=== PATIENT | male | born 1940 | race Caucasian/White ===

== ENCOUNTER 2018-08-13 10:43 | Day surgery (SDC) | payer MEDICARE, OTHER ==
[~2018-08-13] VITALS: Ht 182.9 cm; Wt 92.5 kg
[~2018-08-13 10:43] MED LIST: AMLO10 PO; GABA300 PO; GLIP5ER PO; LO-DOSE ASPIRIN81 MG PO; METF500 PO; TRAM50 PO; ZESTRIL40 MG PO
== END 2018-08-13 15:30 | disposition home or self-care (01) ==
LOC: ORSCSDS 10:43
PROVIDERS: Podiatrist Foot & Ankle Surgery
PROC: 0SGK07Z Fusion of Right Tarsometatarsal Joint with Autologous Tissue Substitute, Open Approach (ICD-10-PCS; principal; 2018-08-13 12:30)
PROC: 0SGH04Z Fusion of Right Tarsal Joint with Internal Fixation Device, Open Approach (ICD-10-PCS; principal; 2018-08-13 12:30)
PROC: 0SGK04Z Fusion of Right Tarsometatarsal Joint with Internal Fixation Device, Open Approach (ICD-10-PCS; principal; 2018-08-13 12:30)
DX: M21.171 Varus deformity, not elsewhere classified, right ankle (principal); M19.071 Primary osteoarthritis, right ankle and foot; I10 Essential (primary) hypertension; E11.40 Type 2 diabetes mellitus with diabetic neuropathy, unspecified; Z87.891 Personal history of nicotine dependence; Z79.899 Other long term (current) drug therapy; Z79.82 Long term (current) use of aspirin
CPT/HCPCS: 82947; C1713; C1769; J2370; J2405; J2704; J3010

== ENCOUNTER 2018-10-29 06:14 | Day surgery (SDC) | payer MEDICARE, OTHER | END 2018-10-29 09:04 | disposition home or self-care (01) | LOC: ORSCSDS 06:14 | PROVIDERS: Podiatrist Foot & Ankle Surgery | PROC: 0YP90YZ Removal of Other Device from Right Lower Extremity, Open Approach (ICD-10-PCS; principal; 2018-10-29 07:30) | DX: Z96.9 Presence of functional implant, unspecified (principal); I10 Essential (primary) hypertension; E11.9 Type 2 diabetes mellitus without complications; Z79.82 Long term (current) use of aspirin; Z79.84 Long term (current) use of oral hypoglycemic drugs; Z79.899 Other long term (current) drug therapy | CPT/HCPCS: 82947; J2250; J2704; J3010; J7120 ==

== ENCOUNTER 2021-02-01 10:10 | Inpatient (IN) | payer MEDICARE, BC ==
[~2021-02-01] VITALS: Ht 185.4 cm; Wt 91.5 kg
[2021-02-01 11:12] LABS: BASOPHILS ABSOLUTE AUTO 0.08 K/mm3 (0.00-0.23); BASOPHILS PERCENT AUTO 0 % (0-2); EOSINOPHILS ABSOLUTE AUTO 0.05 K/mm3 (0.00-0.68); EOSINOPHILS PERCENT AUTO 0 % (0-6); Hemoglobin 13.2 g/dL (13.5-17.5); IMMATURE GRAN ABSOLUTE AUTO 0.17 K/mm3 (0.00-0.10); IMMATURE GRAN PERCENT AUTO 1 % (0-1); LYMPHOCYTES ABSOLUTE AUTO 1.08 K/mm3 (0.84-5.20); LYMPHOCYTES PERCENT AUTO 5 % (21-46); MONOCYTES ABSOLUTE AUTO 2.13 K/mm3 (0.16-1.47); MONOCYTES PERCENT AUTO 10 % (4-13); Mean Corpuscular HGB 31.6 pg (26.0-34.0); Mean Corpuscular Volume 96 fL (80-100); Mean Platelet Volume 11.3 fL (9.1-12.4); NEUTROPHILS ABSOLUTE AUTO 16.93 K/mm3 (1.96-9.15); NEUTROPHILS PERCENT AUTO 83 % (41-73); Platelet Count 297 K/mm3 (150-400); RDW Coefficient Variation 14.1 % (11.7-14.2); RDW Standard Deviation 49.1 fL (35.1-46.3); Red Blood Cell Count 4.18 M/mm3 (4.30-5.90); White Blood Cell Count 20.44 K/mm3 (4.00-11.30)
[2021-02-01 11:33] LABS: Albumin, Blood 2.6 g/dL (3.4-5.0); Albumin/Globulin Ratio 0.6 (0.8-1.8); Bilirubin, Total 0.6 mg/dL (0.1-1.0); Bun/Creatinine Ratio 21.8 (12.0-20.0); Calcium, Blood 9.2 mg/dL (8.5-10.1); Creatinine, Blood 1.56 mg/dL (0.60-1.20); Globulin, Blood 4.4 g/dL (2.2-4.0); Potassium, Blood 4.7 mmol/L (3.5-5.5)
[2021-02-01] MEDS ORDERED: GLIP5 PO (12:55)
[2021-02-01] MEDS ORDERED: PRAVASTATIN SOD10 MG PO (12:56)
--- NOTE | 2021-02-01 18:42 | NUR ---
PATIENT IS ALERT AND ORIENTED AND COOPERATIVE WITH CARE. PICTURES OF HIS WOUNDS WERE TAKEN AND PLACED ON HIS CHART TODAY. C/O PAIN AND MEDICATED PER EMAR. USES THE URINAL STANDING AT THE BEDSIDE WITH SBA. USES A CANE. HIS LACTIC ACID INCREASED TO 2.9 cH, DR. GO WAS CALLED AND NOTIFIED BY VOICEMAIL. PATIENT LIVES AT HOME WITH HIS . WILL CONTINUE TO MONITOR
[2021-02-02 05:12] LABS: BASOPHILS ABSOLUTE AUTO 0.05 K/mm3 (0.00-0.23); BASOPHILS PERCENT AUTO 0 % (0-2); EOSINOPHILS ABSOLUTE AUTO 0.11 K/mm3 (0.00-0.68); EOSINOPHILS PERCENT AUTO 1 % (0-6); Hematocrit 37.7 % (37.0-53.0); Hemoglobin 12.6 g/dL (13.5-17.5); IMMATURE GRAN ABSOLUTE AUTO 0.23 K/mm3 (0.00-0.10); IMMATURE GRAN PERCENT AUTO 1 % (0-1); LYMPHOCYTES ABSOLUTE AUTO 0.97 K/mm3 (0.84-5.20); LYMPHOCYTES PERCENT AUTO 5 % (21-46); MONOCYTES ABSOLUTE AUTO 1.17 K/mm3 (0.16-1.47); MONOCYTES PERCENT AUTO 6 % (4-13); Mean Corpuscular HGB 31.3 pg (26.0-34.0); Mean Corpuscular HGB Conc 33.4 g/dL (31.5-36.5); Mean Corpuscular Volume 94 fL (80-100); Mean Platelet Volume 11.3 fL (9.1-12.4); NEUTROPHILS ABSOLUTE AUTO 17.91 K/mm3 (1.96-9.15); NEUTROPHILS PERCENT AUTO 88 % (41-73); Platelet Count 288 K/mm3 (150-400); RDW Standard Deviation 48.4 fL (35.1-46.3); Red Blood Cell Count 4.02 M/mm3 (4.30-5.90); White Blood Cell Count 20.44 K/mm3 (4.00-11.30)
[2021-02-02 05:38] LABS: Alanine Aminotransfer (ALT/SGP 14 U/L (12-78); Albumin, Blood 2.3 g/dL (3.4-5.0); Albumin/Globulin Ratio 0.5 (0.8-1.8); Alk Phos 77 U/L (50-136); Anion Gap 7 mmol/L (6-16); Aspartate Aminotrans (AST/SGOT 37 U/L (12-37); Bilirubin, Total 0.6 mg/dL (0.1-1.0); Blood Urea Nitrogen 34 mg/dL (8-24); Bun/Creatinine Ratio 30.1 (12.0-20.0); CO2, Blood 22 mmol/L (21-32); Calcium, Blood 9.1 mg/dL (8.5-10.1); Chloride, Blood 102 mmol/L (98-108); Creatinine, Blood 1.13 mg/dL (0.60-1.20); Globulin, Blood 4.2 g/dL (2.2-4.0); Glomerular Filtration Rate >60 (60-); Glucose, Blood 180 mg/dL (70-99); Potassium, Blood 4.5 mmol/L (3.5-5.5); Sodium, Blood 131 mmol/L (136-145); Total Protein, Blood 6.5 g/dL (6.4-8.2)
--- NOTE | 2021-02-02 06:19 | NUR ---
SHIFT SUMMARY PT HAD C/O NAUSEA AND DRY HEAVING, TREATED WITH PRN ZOFRAN. PT ABLE TO SLEEP A FEW HOURS. HE HAD SOME CONFUSION AT NIGHT, NO HALLUCINATIONS NOTED. CONFUSION RESULTED IN PT BECOMING TANGLED WITH THE BLANKETS, OR SITTING ON THE EDGE OF THE BED UNABLE TO STAND WHEN HE WANTED TO USE THE URINAL WITH STAND BY ASSISTANCE. HE IS A&O X4 TO PLACE/EVENTS/PERSON/TIME, BUT SEEMS CONFUSED OR DIZZY WHEN HE TRIES TO STAND. BED IN LOWEST POSITION, CALL LIGHT WITHIN REACH.
--- NOTE | 2021-02-02 18:09 | NUR ---
SHIFT SUMMARY PT RESTING QUIETLY AT START OF SHIFT. WOKE EASILY FOR CARE. IVF'S AND IV ABX INFUSING PER EMAR. PT CALLED FOR ASSIST TO [facility] FOR BM. 1P SBA USING FWW. PER REPORT, PT ADMITTED FOR SEVERE SEPSIS R/T L GLUTEAL BOIL. L BUTTOCK RED, SWOLLEN AND FIRM. PT REPORTS IT PAINFUL. DR AGUILLON AND DR MARTÍNEZ IN TO SEE PT TODAY. SX CONSULT ORDERED; CALLED TO DR CONNELLY. [place] TO [place] NPO [place]. COVID SCREENING TEST SENT PER ORDERS. PT'S IN TO VISIT THIS AFTERNOON. ORDERS EXPLAINED TO PT AND ; VERBALIZED UNDERSTANDING. PT UP TO BTH[facility] AGAIN THIS AFTERNOON FOR EX LRG BM. SBA USING FWW, ASSISTING WITH IV PUMP. PT RESTING QUIETLY AT THIS TIME. DENIED FURTHER NEEDS. CALL LT IN REACH.
[2021-02-02 18:23] LABS: SARS-Cov-2 (COVID-19) PCR, MMC NEGATIVE (NEGATIVE)
--- NOTE | 2021-02-03 04:52 | NUR ---
SHIFT SUMMARY NO ACUTE CHANGES. PT DID EXHIBIT SOME FIXATION AND POSSIBLE CONFUSION DURING THE NIGHT. HE KEPT ASKING "WHEN ARE THEY COMING TO TAKE ME?" FOR TOMORROW'S SURGICAL CONSULT/PROCEDURE FOR HIS LEFT GLUTE WOUND. C/O ABD PAIN AND NAUSEA, RECEIVED PRN IV MEDICATION FOR NAUSEA. NPO AFTER MIDNIGHT FOR SURGICAL CONSULT. BED ALARM ON. PT WILL CALL FOR STAND BY ASSISTANCE WITH BSC OR URINAL. VSS. NO ACUTE CHANGES.
[2021-02-03 05:28] LABS: Hematocrit 36.9 % (37.0-53.0); Hemoglobin 12.3 g/dL (13.5-17.5); Mean Corpuscular HGB 31.6 pg (26.0-34.0); Mean Corpuscular HGB Conc 33.3 g/dL (31.5-36.5); Mean Corpuscular Volume 95 fL (80-100); Mean Platelet Volume 11.6 fL (9.1-12.4); Platelet Count 308 K/mm3 (150-400); RDW Coefficient Variation 14.3 % (11.7-14.2); RDW Standard Deviation 49.7 fL (35.1-46.3); Red Blood Cell Count 3.89 M/mm3 (4.30-5.90); White Blood Cell Count 14.47 K/mm3 (4.00-11.30)
[2021-02-03 06:39] LABS: Alanine Aminotransfer (ALT/SGP 17 U/L (12-78); Albumin/Globulin Ratio 0.5 (0.8-1.8); Alk Phos 72 U/L (50-136); Anion Gap 4 mmol/L (6-16); Aspartate Aminotrans (AST/SGOT 38 U/L (12-37); Bilirubin, Total 0.4 mg/dL (0.1-1.0); Blood Urea Nitrogen 23 mg/dL (8-24); Bun/Creatinine Ratio 25.2 (12.0-20.0); CO2, Blood 25 mmol/L (21-32); Calcium, Blood 8.9 mg/dL (8.5-10.1); Chloride, Blood 107 mmol/L (98-108); Creatinine, Blood 0.91 mg/dL (0.60-1.20); Glomerular Filtration Rate >60 (60-); Glucose, Blood 117 mg/dL (70-99); Potassium, Blood 4.4 mmol/L (3.5-5.5); Sodium, Blood 136 mmol/L (136-145)
[2021-02-03 12:47] LABS: Vancomycin, Trough 5.6 ug/mL (5.0-10.0)
--- NOTE | 2021-02-03 14:43 | NUR ---
SHIFT SUMMARY PT AWAKE AT START OF SHIFT. NPO SINCE [place] FOR PROCEDURE TO BE DONE THIS AFTERNOON. PT HAS BEEN UP TO BTHRM SEVERAL TIMES WITH 1P SBA USING FWW. IVF'S AND IV ABX INFUSED PER EMAR. PT HAS BEEN PLEASANT AND CO-OP WITH CARE, JUST WAITING TO GO FOR SX. DR MARTÍNEZ IN EARLY THIS AM TO SEE PT AND DISCUSS PLAN OF CARE. DR CONNELLY HERE A LITTLE LATER TO DISCUSS PROCEDURE AND OBTAIN SIGNED CONSENT. CURRENTLY AT BS TO VISIT. PT C/O NAUSEA THIS AFTERNOON WHEN OTHER LUNCH TRAYS DELIVERED IN [place]. ZOFRAN GIVEN PER EMAR. DENIED FURTHER NEEDS. CALL LT IN REACH.
--- NOTE | 2021-02-03 19:35 | NUR ---
1750 PT RETURNED FROM I&D OF L BUTTOCK; TOLERATED WELL. POST OP REPORT GIVEN BY BUDDY PERRY. VSS; SEE CHART. PT AWAKE, SITTING UP IN BED. ABLE TO EAT DINNER. IV ABX INFUSING; FLAGYL LATE D/T PT BEING GONE. ROCEPHIN TO BE GIVEN AT THIS TIME. PT RESTING QUIETLY. DENIED FURTHER NEEDS. CALL LT IN REACH.
--- NOTE | 2021-02-04 04:53 | NUR ---
SHIFT SUMMARY PT INITIALLY HAD SOME DIFFICULTY URINATING AFTER RETURNING FROM I&D PROCEDURE, BUT WAS ABLE TO VOID 300MLS. PT HAD TWO FORMED BOWEL MOVEMENTS. RN RE-DRESSED GAUZE COVERING ALEXANDR DRAIN ON THE LEFT GLUTE ABSCESS FROM THE I&D. SMALL AMOUNT OF SANGUINOUS DRAINAGE. PT C/O PAIN TO THE BILAT LEGS, WHICH WAS TREATED WITH PRN PAIN MEDICATION. VSS. PT ON ROOM AIR.
[2021-02-04 05:07] LABS: BASOPHILS ABSOLUTE AUTO 0.02 K/mm3 (0.00-0.23); BASOPHILS PERCENT AUTO 0 % (0-2); EOSINOPHILS PERCENT AUTO 0 % (0-6); Hematocrit 37.4 % (37.0-53.0); Hemoglobin 12.5 g/dL (13.5-17.5); IMMATURE GRAN ABSOLUTE AUTO 0.26 K/mm3 (0.00-0.10); IMMATURE GRAN PERCENT AUTO 2 % (0-1); LYMPHOCYTES ABSOLUTE AUTO 0.63 K/mm3 (0.84-5.20); LYMPHOCYTES PERCENT AUTO 4 % (21-46); MONOCYTES ABSOLUTE AUTO 1.03 K/mm3 (0.16-1.47); MONOCYTES PERCENT AUTO 7 % (4-13); Mean Corpuscular HGB 31.1 pg (26.0-34.0); Mean Corpuscular HGB Conc 33.4 g/dL (31.5-36.5); Mean Corpuscular Volume 93 fL (80-100); Mean Platelet Volume 11.8 fL (9.1-12.4); NEUTROPHILS ABSOLUTE AUTO 13.98 K/mm3 (1.96-9.15); NEUTROPHILS PERCENT AUTO 88 % (41-73); Platelet Count 342 K/mm3 (150-400); RDW Coefficient Variation 14.2 % (11.7-14.2); RDW Standard Deviation 49.6 fL (35.1-46.3); Red Blood Cell Count 4.02 M/mm3 (4.30-5.90); White Blood Cell Count 15.92 K/mm3 (4.00-11.30)
[2021-02-04 05:47] LABS: Alanine Aminotransfer (ALT/SGP 14 U/L (12-78); Albumin, Blood 1.8 g/dL (3.4-5.0); Albumin/Globulin Ratio 0.5 (0.8-1.8); Alk Phos 76 U/L (50-136); Anion Gap 7 mmol/L (6-16); Aspartate Aminotrans (AST/SGOT 26 U/L (12-37); Bilirubin, Total 0.4 mg/dL (0.1-1.0); Blood Urea Nitrogen 28 mg/dL (8-24); Bun/Creatinine Ratio 34.5 (12.0-20.0); CO2, Blood 22 mmol/L (21-32); Chloride, Blood 105 mmol/L (98-108); Creatinine, Blood 0.81 mg/dL (0.60-1.20); Globulin, Blood 3.9 g/dL (2.2-4.0); Glomerular Filtration Rate >60 (60-); Glucose, Blood 233 mg/dL (70-99); Potassium, Blood 4.6 mmol/L (3.5-5.5); Sodium, Blood 134 mmol/L (136-145); Total Protein, Blood 5.7 g/dL (6.4-8.2)
--- NOTE | 2021-02-04 13:26 | NUR ---
Patient is lying in bed and alert. Patient tells me about his medical issues and the pain that he has endured. We then talk at length about his strong Shinto beliefs and his family (One of 61yrs, One child and his family lives in this area, the other child lives in [place] and the patient and his spouse Melissa lives 6mos a yr in [place] and 6mos in [place]). Patient becomes tearful when he discusses the needs globally caused by food/housing insecurity and the needs to know the Gospel. He shares about his long family history of the men in his family making huge sacrifices to meet the needs of others. This patient has done the same. I provide conversation in the subject that the patient is most passionate about and energized by. I also encourage self-care, and provide therapeutic listening, recitation of scripture and prayer. Patient responds well and shows signs of being encouraged in his eduardo. I will continue to remain available to patient and family.
--- NOTE | 2021-02-04 19:15 | NUR ---
SHIFT SUMMARY: PT A/O X 4 USES URINAL AT BEDSIDE. PT PAIN TO BOTTOM COMTROLLED WITH TRAMADOL. DRAINAGE TO R BUTTOCK BROWNE COLORED, SMALL AMT. PT PLACED IN ISO PRECAUTIONS FOR MRSA INFECTION TODAY.
--- NOTE | 2021-02-05 05:03 | NUR ---
SUMMARY: PT A/OX4, CALLS APPROPRIATELY AND IS PLEASANT/COOPERATIVE W/CARE. HE USES URINAL INDEPENDENTLY AND IS SBA OOB. ALEXANDR DRAIN TO BUTTOCK REMAINS INTACT, SCANT AMT BROWNE DRAINAGE OBSERVED BUT DX REMAINS C/D/I. WILL CHANGE IF NEEDED. CONTACT ISO IN PLACE FOR MRSA INFECTION. IV ABX RECIEVED THEN SL'D. TRAMADOL RECIEVED APPROX Q4H PRN FOR TOLERABLE RELIEF. NO ACUTE CHANGES, VSS/AFEBRILE. PT TO D/C PENDING CULTURE SENSITIVITY RESULTS. WCSANIA AND REPORT TO DAY RN.
[2021-02-05 07:40] LABS: Hematocrit 39.5 % (37.0-53.0); Hemoglobin 13.1 g/dL (13.5-17.5); Mean Corpuscular HGB 30.9 pg (26.0-34.0); Mean Corpuscular HGB Conc 33.2 g/dL (31.5-36.5); Mean Corpuscular Volume 93 fL (80-100); Mean Platelet Volume 11.6 fL (9.1-12.4); Platelet Count 373 K/mm3 (150-400); RDW Coefficient Variation 14.3 % (11.7-14.2); RDW Standard Deviation 49.2 fL (35.1-46.3); Red Blood Cell Count 4.24 M/mm3 (4.30-5.90); White Blood Cell Count 11.51 K/mm3 (4.00-11.30)
[2021-02-05 13:20] LABS: Alanine Aminotransfer (ALT/SGP 19 U/L (12-78); Albumin, Blood 1.9 g/dL (3.4-5.0); Albumin/Globulin Ratio 0.5 (0.8-1.8); Alk Phos 62 U/L (50-136); Anion Gap 8 mmol/L (6-16); Aspartate Aminotrans (AST/SGOT 23 U/L (12-37); Bilirubin, Total 0.3 mg/dL (0.1-1.0); Blood Urea Nitrogen 20 mg/dL (8-24); Bun/Creatinine Ratio 23.5 (12.0-20.0); CO2, Blood 24 mmol/L (21-32); Calcium, Blood 9.2 mg/dL (8.5-10.1); Chloride, Blood 108 mmol/L (98-108); Creatinine, Blood 0.85 mg/dL (0.60-1.20); Globulin, Blood 3.8 g/dL (2.2-4.0); Glomerular Filtration Rate >60 (60-); Glucose, Blood 158 mg/dL (70-99); Potassium, Blood 4.2 mmol/L (3.5-5.5); Sodium, Blood 140 mmol/L (136-145); Total Protein, Blood 5.7 g/dL (6.4-8.2)
[2021-02-05] MEDS ORDERED: VISBIOME 112.51 EACH PO (14:16)
[2021-02-05] MEDS ORDERED: Cleocin HCl150 MG PO (14:19)
--- NOTE | 2021-02-05 15:32 | NUR ---
DISCHARGE NOTE: PT DISCHARGED TODAY TO HOME. PT GIVEN DC INSTRUCTIONS AND WOUND CARE INSTRUCTIONS BY MARIO PERRY. PT BELONGINGS PACKED UP AND SENT WITH PT. PT ESCORTED TO POV VIA WC AND VICE PRESIDENT REGULATORY TO POV.
== END 2021-02-05 14:50 | disposition home or self-care (01) | DRG 872 ==
LOC: ER 10:10 → MEDS 13:40
PROVIDERS: Emergency Medicine; Family Medicine; Nurse Practitioner Acute Care; Student in an Organized Health Care Education/Training Program; Surgery; ADMIT Internal Medicine
PROC: 3E02340 Introduction of Influenza Vaccine into Muscle, Percutaneous Approach (ICD-10-PCS; 2021-02-01)
PROC: 0Y910ZZ Drainage of Left Buttock, Open Approach (ICD-10-PCS; principal; 2021-02-03 14:00)
DX: A41.02 Sepsis due to Methicillin resistant Staphylococcus aureus (principal); L03.115 Cellulitis of right lower limb; N17.9 Acute kidney failure, unspecified; L02.31 Cutaneous abscess of buttock; I10 Essential (primary) hypertension; Z23 Encounter for immunization; Z20.822 Contact with and (suspected) exposure to COVID-19; R65.20 Severe sepsis without septic shock; E78.5 Hyperlipidemia, unspecified; K62.89 Other specified diseases of anus and rectum; E11.9 Type 2 diabetes mellitus without complications; Z90.49 Acquired absence of other specified parts of digestive tract; Z79.82 Long term (current) use of aspirin; Z79.84 Long term (current) use of oral hypoglycemic drugs; Z88.0 Allergy status to penicillin; E86.9 Volume depletion, unspecified
CPT/HCPCS: 36415; 72193; 80053; 80202; 82947; 83605; 85025; 85027; 87040; 87070; 87075; 87077; 87147; 87186; 87205; 90471; 90714; 96365; 96375; 99285-25; A9270; J0690; J0696; J1100; J1644; J2370; J2405; J2704; J3010; J3370; J7030; J7120; Q9967; U0004

== ENCOUNTER → 2021-04-23 | Outpatient (CLI) | payer MEDICARE, BC ==
[~2021-04-23] MED LIST changes: +Cleocin HCl150 MG PO; +GLIP5 PO; +PRAVASTATIN SOD10 MG PO; +VISBIOME 112.51 EACH PO
== END | disposition home or self-care (01) ==
LOC: LAB SHORT 08:38
DX: L30.8 Other specified dermatitis (principal)
CPT/HCPCS: 88305; 88312